=== PATIENT | female | born 1985 | race Caucasian/White ===

== ENCOUNTER → 2017-10-18 | Outpatient (REF) | payer OTHER | LOC: M LAB REF 18:43 | DX: L72.3 Sebaceous cyst (principal) ==

== ENCOUNTER → 2017-11-01 | Outpatient (REF) | payer OTHER | LOC: M LAB REF 18:26 | DX: L72.11 Pilar cyst (principal) ==

== ENCOUNTER → 2017-12-12 | Outpatient (CLI) | payer OTHER | LOC: M SLEEP HO 07:27 | DX: G47.00 Insomnia, unspecified (principal); G47.33 Obstructive sleep apnea (adult) (pediatric) ==

== ENCOUNTER → 2018-04-23 | Outpatient (CLI) | payer OTHER ==
[2018-04-23 13:30] LABS: APPEARANCE, URINE CLEAR (CLEAR); BACTERIA, URINE AUTO 1+ (NEGATIVE); BILIRUBIN, URINE AUTO NEGATIVE (NEGATIVE); BLOOD, URINE BLOOD NEGATIVE (NEGATIVE); COLOR, URINE STRAW (YELLOW); GLUCOSE, URINE (UA) AUTO NEGATIVE (NEGATIVE); KETONE, URINE AUTO NEGATIVE (NEGATIVE); LEUKOCYTE ESTERASE, URINE AUTO TRACE (NEGATIVE); NITRITE, URINE AUTO NEGATIVE (NEGATIVE); PROTEIN, URINE AUTO NEGATIVE (NEGATIVE); RBC, URINE AUTO 0 /HPF (0-3); SPECIFIC GRAVITY URINE AUTO 1.003 (1.002-1.035); SQUAMOUS EPITHELIAL CELL UR AU 1 /HPF (0-6); UROBILINOGEN, URINE AUTO 0.2 mg/dL (0.0-2.0); WBC, URINE AUTO 1 /HPF (0-3)
[2018-04-23 13:59] LABS: HEMOGLOBIN A1c 5.6 %
[2018-04-23 14:06] LABS: ALBUMIN 4.3 GM/DL (3.2-5.2); ALT/SGPT 22 U/L (12-78); BILIRUBIN,TOTAL 0.8 MG/DL (0.2-1.0); BLOOD UREA NITROGEN 9 MG/DL (7-18); CALCIUM LEVEL 8.6 MG/DL (8.5-10.1); CARBON DIOXIDE LEVEL 26 MEQ/L (21-32); CHLORIDE LEVEL 105 MEQ/L (98-107); CHOLESTEROL LEVEL 166 MG/DL (<200); CHOLESTEROL RISK RATIO 3.018 (<5); CREATININE FOR GFR 0.69 MG/DL (0.55-1.30); FREE T4 0.98 NG/DL (0.76-1.46); GLOMERULAR FILTRATION RATE > 60.0 (>60); GLUCOSE, FASTING 83 MG/DL (70-100); HDL CHOLESTEROL 55 MG/DL (>40); LDL CHOLESTEROL 95 MG/DL (<100); NON-HDL-C 111 MG/DL; POTASSIUM SERUM 4.2 MEQ/L (3.5-5.1); SODIUM LEVEL 137 MEQ/L (136-145); THYROID STIMULATING HORMONE 0.902 uIU/ML (0.358-3.740); TOTAL PROTEIN 7.6 GM/DL (6.4-8.2); TRIGLYCERIDES LEVEL 81 MG/DL (<150)
[2018-04-24 09:20] LABS: CREATININE, URINE 25.6 MG/DL; MALB URINE SIEMENS < 5.0 MG/L; MAU/CREAT RATIO 19.5 MCG/MG (0.0-30.0)
== END ==
LOC: M SMT 11:25
PROVIDERS: ATTEND Family Medicine
DX: Z83.3 Family history of diabetes mellitus (principal)

== ENCOUNTER → 2018-04-23 | Outpatient (CLI) | payer OTHER ==
[2018-04-23 13:35] LABS: BASO # 0.1 10^3/uL (0.0-0.2); BASO % 0.7 % (0.0-1.0); EOS # 0.1 10^3/uL (0.0-0.50); EOS % 1.3 % (0.0-3.0); HEMATOCRIT 42.2 % (36.0-47.0); HEMOGLOBIN 14.5 g/dl (12.0-15.5); LYMPH # 1.5 10^3/uL (1.5-4.5); LYMPH % 20.8 % (24.0-44.0); MEAN CORPUSCULAR HEMOGLOBIN 30.3 pg (27.0-33.0); MEAN CORPUSCULAR HGB CONC 34.4 g/dl (32.0-36.5); MEAN CORPUSCULAR VOLUME 88.1 fl (80.0-96.0); MONO # 0.4 10^3/uL (0.0-0.8); MONO % 5.9 % (0.0-5.0); NEUTROPHILS # 5.1 10^3/uL (1.8-7.7); NEUTROPHILS % 71.2 % (36.0-66.0); PLATELET COUNT, AUTOMATED 294 10^3/uL (150-450); RED BLOOD COUNT 4.79 10^6/uL (4.00-5.40); WHITE BLOOD COUNT 7.2 10^3/uL (4.0-10.0)
[2018-04-23 17:17] LABS: FREE T4 0.99 NG/DL (0.76-1.46); PROLACTIN 17.3 NG/ML; THYROID STIMULATING HORMONE 0.896 uIU/ML (0.358-3.740)
== END ==
LOC: M SMT 11:23
PROVIDERS: ATTEND Nurse Practitioner Women's Health
DX: N92.0 Excessive and frequent menstruation with regular cycle (principal); L68.0 Hirsutism

== ENCOUNTER → 2018-05-20 | Outpatient (CLI) | payer OTHER ==
--- NOTE | 2018-05-23 11:58 | SLEEPHOME ---
DATE OF PROCEDURE: 05/20/2018 ORDERED BY: Dr. Bowen. Diagnostic home sleep testing was performed due to concern for the obstructive sleep apnea syndrome. For testing, a nocturnal T3 respiratory monitoring device was used. Continuous record was made of pulse, oxygen saturation, airflow, chest, abdominal strain and body position. 10 hours and 59 minutes of data were reviewed. Of these, 9 hours and 17 minutes were marked as time in bed. During the interval marked time in bed, there were 16 respiratory events identified of 10 seconds in duration or greater for a respiratory event index of only 1.7. The events that were seen were identified exclusively in the supine posture. Baseline pulse rate was 63 beats per minute, pulse rate ranged 50-94. Baseline saturation 96% with some artifactual changes but no significant oxygen desaturations were identified. IMPRESSION: Normal diagnostic home sleep testing with mild respiratory disruption in the supine position. RECOMMENDATIONS: Sleep position for avoidance of supine posture should be sufficient to address the respiratory events that were seen during this test.
== END ==
LOC: M SLEEP HO 10:44
PROVIDERS: ATTEND Family Medicine
DX: G47.33 Obstructive sleep apnea (adult) (pediatric) (principal)

== ENCOUNTER → 2019-06-01 | Outpatient (CLI) | payer OTHER ==
[2019-06-01 14:57] LABS: ALBUMIN 3.7 GM/DL (3.2-5.2); ALT/SGPT 27 U/L (12-78); BILIRUBIN,TOTAL 0.6 MG/DL (0.2-1.0); BLOOD UREA NITROGEN 14 MG/DL (7-18); CALCIUM LEVEL 8.7 MG/DL (8.5-10.1); CARBON DIOXIDE LEVEL 26 MEQ/L (21-32); CHLORIDE LEVEL 107 MEQ/L (98-107); FREE T4 0.81 NG/DL (0.76-1.46); GLOMERULAR FILTRATION RATE > 60.0 (>60); GLUCOSE, FASTING 87 MG/DL (70-100); POTASSIUM SERUM 4.3 MEQ/L (3.5-5.1); SODIUM LEVEL 138 MEQ/L (136-145)
[2019-06-04 00:07] LABS: DEHYDROEPIANDROSTERONE SULFATE 502.3 ug/dL (84.8-378.0); TESTOSTERONE FREE (DIRECT) 5.9 pg/mL (0.0-4.2)
== END ==
LOC: M WUC 10:30
PROVIDERS: ATTEND Nurse Practitioner Women's Health
DX: Z00.00 Encounter for general adult medical examination without abnormal findings (principal); L68.0 Hirsutism

== ENCOUNTER → 2019-11-18 | Outpatient (REF) | payer OTHER ==
[2019-12-29 12:59] LABS: DEHYDROEPIANDROSTERONE SULFATE See Separate Report MCG/DL; INSULIN LEVEL See Separate Report; TESTOSTERONE FREE (DIRECT) See Separate Report PG/ML; TESTOSTERONE TOTAL FOR T&D See Separate Report NG/DL
[2020-01-13 15:23] LABS: ALBUMIN 4.1 GM/DL (3.2-5.2); ALT/SGPT 28 U/L (12-78); BILIRUBIN,TOTAL 0.3 MG/DL (0.2-1.0); BLOOD UREA NITROGEN 11 MG/DL (7-18); CALCIUM LEVEL 8.9 MG/DL (8.5-10.1); CARBON DIOXIDE LEVEL 29 MEQ/L (21-32); CHLORIDE LEVEL 107 MEQ/L (98-107); CREATININE FOR GFR 0.74 MG/DL (0.55-1.30); FOLLICLE STIMULATING HORMONE 8.5 mIU/mL; GLOMERULAR FILTRATION RATE > 60.0 (>60); GLUCOSE, FASTING 80 MG/DL (70-100); HEMOGLOBIN A1c 5.2 %; LUTEINIZING HORMONE 5.9 mIU/mL; POTASSIUM SERUM 4.4 MEQ/L (3.5-5.1); PROLACTIN 14.9 NG/ML; SODIUM LEVEL 140 MEQ/L (136-145); TOTAL PROTEIN 7.9 GM/DL (6.4-8.2)
[2020-01-28 03:19] LABS: H PYLORI QUALITATIVE IgG NEGATIVE (NEGATIVE)
== END ==
LOC: M SFHCPLAZ 13:00
PROVIDERS: ATTEND Family Medicine
DX: I10 Essential (primary) hypertension (principal)
CPT/HCPCS: 36415; 80053; 82627; 83001; 83002; 83036; 83525; 84146; 84402; 84403; 86677; U0003

== ENCOUNTER → 2019-11-25 | Outpatient (CLI) | payer OTHER ==
[~2019-11-25] MED LIST: GASTROGRAFIN SOLUTION 30ML (Q9963) As Ordered ONE; ISOVUE-370 76% 100ML VIAL As Ordered ONE
--- NOTE | 2020-01-12 17:55 | REP ---
CT STUDY OF THE ABDOMEN WITHOUT AND WITH IV CONTRAST AND WITH ORAL CONTRAST (REPEAT DICTATION) HISTORY: Elevated laboratory values. CT CONTRAST DOSE: 100 mL of intravenous [id number]. CT FINDINGS: Digital preliminary terra cotta setter radiograph is unremarkable. Normal bowel gas pattern. The lung bases are clear on axial CT images. Pre and post contrast CT imaging shows that the liver and spleen are normal in size, homogeneous in texture. Normal adrenal glands are seen. No abnormality is noted in the pancreas. The gallbladder is unremarkable. The kidneys enhance symmetrically and are morphologically intact. No retroperitoneal mass or adenopathy is seen. Small and large bowel loops are normal in the mid abdomen. No bony abnormality is seen. IMPRESSION: No significant abnormality noted. MTDD
--- NOTE | 2020-01-12 17:56 | REP ---
PELVIC SONOGRAPHY (REPEAT DICTATION) FINDINGS: Transabdominal scanning demonstrates a normal size uterus. Its dimensions are 7.5 x 3.3 x 5.0 cm. Endometrial echo is 0.4 cm in thickness. No focal uterine mass is seen. No free fluid is noted. Normal ovaries are seen on transabdominal imaging. Patient declined transvaginal imaging. The right ovary measures 2.8 x 1.5 x 2.3 cm. Left ovarian dimensions are 2.3 x 1.6 x 1.5 cm. Visualized bladder valentine are smooth. IMPRESSION: Normal pelvic sonography. MTDD
== END ==
LOC: M RAD 09:59
PROVIDERS: ATTEND Family Medicine
DX: E34.9 Endocrine disorder, unspecified (principal)

== ENCOUNTER → 2020-03-09 | Outpatient (CLI) | payer SELFPAY | LOC: M LABSMTC 18:45 | PROVIDERS: ATTEND Pediatrics | DX: Z11.59 Encounter for screening for other viral diseases (principal) ==

== ENCOUNTER → 2020-03-14 | Outpatient (CLI) | payer OTHER ==
[2020-03-14 09:58] LABS: HEMOGLOBIN A1c 5.3 %
[2020-03-14 10:13] LABS: ALBUMIN 4.2 GM/DL (3.2-5.2); ALT/SGPT 39 U/L (12-78); BILIRUBIN,TOTAL 0.6 MG/DL (0.2-1.0); BLOOD UREA NITROGEN 13 MG/DL (7-18); C REACTIVE PROTEIN QUANTITATIV 0.35 MG/DL (0.00-0.30); CALCIUM LEVEL 8.9 MG/DL (8.5-10.1); CARBON DIOXIDE LEVEL 28 MEQ/L (21-32); CHLORIDE LEVEL 105 MEQ/L (98-107); CHOLESTEROL LEVEL 184 MG/DL (<200); CHOLESTEROL RISK RATIO 2.967 (<5); CREATININE FOR GFR 0.72 MG/DL (0.55-1.30); GLOMERULAR FILTRATION RATE > 60.0 (>60); GLUCOSE, FASTING 97 MG/DL (70-100); HDL CHOLESTEROL 62 MG/DL (>40); IMMUNOGLOBULIN E 48.6 IU/ML (<100); LDL CHOLESTEROL 110 MG/DL (<100); NON-HDL-C 122 MG/DL; SODIUM LEVEL 138 MEQ/L (136-145); TOTAL PROTEIN 8.1 GM/DL (6.4-8.2); TRIGLYCERIDES LEVEL 61 MG/DL (<150)
[2020-03-14 10:23] LABS: CREATININE, URINE 63.4 MG/DL; MALB URINE SIEMENS 5.1 MG/L
== END ==
LOC: M LAB 08:45
PROVIDERS: ATTEND Family Medicine
DX: J30.89 Other allergic rhinitis (principal); E28.2 Polycystic ovarian syndrome; Z83.3 Family history of diabetes mellitus

== ENCOUNTER → 2020-06-17 | Outpatient (CLI) | payer OTHER ==
--- NOTE | 2020-06-17 12:45 | REP ---
INDICATION: OVARIAN CYSTS/ PT HAS LABS FIRST. COMPARISON: Comparison sonography November 25, 2019.. TECHNIQUE: Transabdominal scanning is performed. Patient declined transvaginal imaging. FINDINGS: Uterine dimensions are normal at 7.5 x 3.4 x 4.7 cm. Endometrial echo is 0.6 cm thick and centrally placed. No free fluid is seen in the cul-de-sac. Visualized bladder valentine are smooth. The right ovary has dimensions of 2.8 x 1.4 x 2.1 cm. It's Doppler flow is normal with a resistive index of 0.6. X The left ovary dimensions are normal as well at 2.4 x 1.6 x 2.2 cm. It's Doppler flow was normal with resistive index of 0.57. IMPRESSION: Normal pelvic sonography. <Electronically signed by Lopez Love > 06/17/20 [id number]
== END ==
LOC: M RAD 10:16
PROVIDERS: ATTEND Obstetrics & Gynecology
DX: E28.1 Androgen excess (principal)

== ENCOUNTER → 2020-07-18 | Outpatient (CLI) | payer OTHER ==
[2020-07-18 11:27] LABS: ALBUMIN 3.9 GM/DL (3.2-5.2); BLOOD UREA NITROGEN 16 MG/DL (7-18); CALCIUM LEVEL 8.9 MG/DL (8.5-10.1); CARBON DIOXIDE LEVEL 29 MEQ/L (21-32); CHLORIDE LEVEL 105 MEQ/L (98-107); CREATININE FOR GFR 0.69 MG/DL (0.55-1.30); GLOMERULAR FILTRATION RATE > 60.0 (>60); GLUCOSE, FASTING 91 MG/DL (70-100); PHOSPHORUS LEVEL 3.9 MG/DL (2.5-4.9); POTASSIUM SERUM 4.1 MEQ/L (3.5-5.1); SODIUM LEVEL 139 MEQ/L (136-145)
[2020-07-19 15:37] LABS: FOLLICLE STIMULATING HORMONE 8.2 mIU/mL
[2020-07-19 15:38] LABS: LUTEINIZING HORMONE 3.9 mIU/mL
== END ==
LOC: M LAB 09:44
PROVIDERS: ATTEND Family Medicine
DX: E28.2 Polycystic ovarian syndrome (principal)

== ENCOUNTER → 2021-01-10 | Outpatient (REF) | payer OTHER | LOC: M SFHCPLAZ 13:11 | PROVIDERS: ATTEND Family Medicine | DX: L98.8 Other specified disorders of the skin and subcutaneous tissue (principal) ==

== ENCOUNTER → 2021-05-20 | Outpatient (CLI) | payer OTHER ==
[2021-05-20 16:51] LABS: ALT/SGPT 36 U/L (12-78); BILIRUBIN,TOTAL 0.2 MG/DL (0.2-1.0); BLOOD UREA NITROGEN 14 MG/DL (7-18); C REACTIVE PROTEIN QUANTITATIV 0.39 MG/DL (0.00-0.30); CALCIUM LEVEL 9.2 MG/DL (8.5-10.1); CARBON DIOXIDE LEVEL 28 MEQ/L (21-32); CHLORIDE LEVEL 105 MEQ/L (98-107); CHOLESTEROL LEVEL 160 MG/DL (<200); CREATININE FOR GFR 0.69 MG/DL (0.55-1.30); GLOMERULAR FILTRATION RATE > 60.0 (>60); GLUCOSE, FASTING 85 MG/DL (70-100); HDL CHOLESTEROL 50 MG/DL (>40); LDL CHOLESTEROL 74 MG/DL (<100); MAGNESIUM LEVEL 2.1 MG/DL (1.8-2.4); NON-HDL-C 110 MG/DL; POTASSIUM SERUM 4.3 MEQ/L (3.5-5.1); SODIUM LEVEL 139 MEQ/L (136-145); TOTAL PROTEIN 7.4 GM/DL (6.4-8.2); TRIGLYCERIDES LEVEL 180 MG/DL (<150)
[2021-05-20 17:24] LABS: HEMOGLOBIN A1c 5.4 %
[2021-05-23 20:12] LABS: INSULIN LEVEL 16.8 uIU/mL (2.6-24.9); TESTOSTERONE FREE (DIRECT) 1.7 pg/mL (0.0-4.2)
== END ==
LOC: M LAB 15:53
PROVIDERS: ATTEND Family Medicine
DX: E28.2 Polycystic ovarian syndrome (principal); E78.2 Mixed hyperlipidemia

== ENCOUNTER → 2021-11-01 | Outpatient (CLI) | payer OTHER ==
[2021-11-01 11:15] LABS: BASO % 0.7 % (0.0-1.0); EOS # 0.1 10^3/uL (0.0-0.5); EOS % 1.6 % (0.0-3.0); HEMATOCRIT 42.2 % (36.0-47.0); HEMOGLOBIN 14.2 g/dl (12.0-15.5); LYMPH % 35.4 % (24.0-44.0); MEAN CORPUSCULAR HEMOGLOBIN 29.5 pg (27.0-33.0); MEAN CORPUSCULAR HGB CONC 33.6 g/dl (32.0-36.5); MEAN CORPUSCULAR VOLUME 87.6 fl (80.0-96.0); MONO # 0.4 10^3/uL (0.0-0.8); MONO % 7.2 % (2.0-8.0); NEUTROPHILS # 3.2 10^3/uL (1.5-8.5); NEUTROPHILS % 54.9 % (36.0-66.0); PLATELET COUNT, AUTOMATED 273 10^3/uL (150-450); RED BLOOD COUNT 4.82 10^6/uL (4.00-5.40); WHITE BLOOD COUNT 5.7 10^3/uL (4.0-10.0)
[2021-11-01 13:01] LABS: ALBUMIN 4.1 GM/DL (3.2-5.2); ALT/SGPT 22 U/L (12-78); BILIRUBIN,TOTAL 0.6 MG/DL (0.2-1.0); BLOOD UREA NITROGEN 14 MG/DL (7-18); CALCIUM LEVEL 9.2 MG/DL (8.5-10.1); CARBON DIOXIDE LEVEL 26 MEQ/L (21-32); CHLORIDE LEVEL 107 MEQ/L (98-107); CREATININE FOR GFR 0.77 MG/DL (0.55-1.30); FREE T4 0.93 NG/DL (0.76-1.46); GLOMERULAR FILTRATION RATE > 60.0 (>60); GLUCOSE, FASTING 92 MG/DL (70-100); POTASSIUM SERUM 4.2 MEQ/L (3.5-5.1); SODIUM LEVEL 139 MEQ/L (136-145); THYROID STIMULATING HORMONE 0.893 uIU/ML (0.358-3.740); TOTAL PROTEIN 7.4 GM/DL (6.4-8.2)
[2021-11-02 16:10] LABS: TESTOSTERONE FREE (DIRECT) 2.9 pg/mL (0.0-4.2)
== END ==
LOC: M LAB 10:52
PROVIDERS: ATTEND Family Medicine
DX: E28.2 Polycystic ovarian syndrome (principal)

== ENCOUNTER → 2021-11-17 | Outpatient (CLI) | payer OTHER | LOC: M PLAIMG 10:14 | PROVIDERS: ATTEND Family Medicine | DX: K58.1 Irritable bowel syndrome with constipation (principal) ==

== ENCOUNTER → 2022-04-08 | Outpatient (CLI) | payer OTHER ==
[2022-04-08 15:44] LABS: ALBUMIN 4.1 G/DL (3.2-5.2); BLOOD UREA NITROGEN 11 MG/DL (9-23); CALCIUM LEVEL 9.1 MG/DL (8.5-10.1); CARBON DIOXIDE LEVEL 29 MMOL/L (20-31); CHLORIDE LEVEL 103 MMOL/L (98-107); CREATININE FOR GFR 0.66 MG/DL (0.55-1.30); GLOMERULAR FILTRATION RATE > 60.0 (>60); GLUCOSE, FASTING 92 MG/DL (60-100); PHOSPHORUS LEVEL 4.3 MG/DL (2.5-4.9); POTASSIUM SERUM 4.1 MMOL/L (3.5-5.1); SODIUM LEVEL 139 MMOL/L (136-145)
[2022-04-08 15:45] LABS: C REACTIVE PROTEIN QUANTITATIV < 0.40 MG/DL (<1.0)
[2022-04-08 15:46] LABS: PTH INTACT 34.5 PG/ML (18.5-88.0)
[2022-04-08 15:47] LABS: FERRITIN 25.7 NG/ML (7.3-270.7); TOTAL 25(OH) VITAMIN D 39.8 NG/ML (20.0-100.0); VITAMIN B12 LEVEL 579 PG/ML (211-911)
== END ==
LOC: M LAB 14:50
PROVIDERS: ATTEND Family Medicine
DX: E28.2 Polycystic ovarian syndrome (principal); N92.0 Excessive and frequent menstruation with regular cycle; E78.2 Mixed hyperlipidemia

== ENCOUNTER → 2022-09-18 | Outpatient (CLI) | payer OTHER ==
[2022-09-18 17:16] LABS: BASO # 0.1 10^3/uL (0.0-0.2); BASO % 0.9 % (0.0-1.0); EOS # 0.1 10^3/uL (0.0-0.5); EOS % 0.8 % (0.0-3.0); HEMOGLOBIN 13.6 g/dl (12.0-15.5); LYMPH # 2.5 10^3/uL (1.5-5.0); LYMPH % 32.4 % (24.0-44.0); MEAN CORPUSCULAR VOLUME 88.3 fl (80.0-96.0); MONO # 0.5 10^3/uL (0.0-0.8); MONO % 6.1 % (2.0-8.0); NEUTROPHILS # 4.6 10^3/uL (1.5-8.5); NEUTROPHILS % 59.5 % (36.0-66.0); PLATELET COUNT, AUTOMATED 296 10^3/uL (150-450); RED BLOOD COUNT 4.53 10^6/uL (4.00-5.40); WHITE BLOOD COUNT 7.7 10^3/uL (4.0-10.0)
== END ==
LOC: M WUC 14:14
PROVIDERS: ATTEND Family Medicine
DX: E28.2 Polycystic ovarian syndrome (principal); D50.9 Iron deficiency anemia, unspecified

== ENCOUNTER → 2023-01-13 | Outpatient (CLI) | payer OTHER ==
[2023-01-13 11:48] LABS: HEMATOCRIT 44.8 % (36.0-47.0)
[2023-01-13 11:49] LABS: BASO # 0.1 10^3/uL (0.0-0.2); BASO % 0.6 % (0.0-1.0); EOS # 0.1 10^3/uL (0.0-0.5); EOS % 1.5 % (0.0-3.0); HEMATOCRIT 44.1 % (36.0-47.0); HEMOGLOBIN 15.1 g/dl (12.0-15.5); LYMPH # 2.4 10^3/uL (1.5-5.0); LYMPH % 29.4 % (24.0-44.0); MEAN CORPUSCULAR HEMOGLOBIN 30.1 pg (27.0-33.0); MEAN CORPUSCULAR HGB CONC 34.2 g/dl (32.0-36.5); MEAN CORPUSCULAR VOLUME 87.8 fl (80.0-96.0); MONO # 0.5 10^3/uL (0.0-0.8); MONO % 5.6 % (2.0-8.0); NEUTROPHILS % 62.6 % (36.0-66.0); PLATELET COUNT, AUTOMATED 306 10^3/uL (150-450); RED BLOOD COUNT 5.02 10^6/uL (4.00-5.40)
[2023-01-13 12:24] LABS: ALBUMIN 4.2 G/DL (3.2-5.2); ALKALINE PHOSPHATASE 56 U/L (46-116); ALT/SGPT 38 U/L (7.0-40); AST/SGOT 21 U/L (<34); BILIRUBIN,TOTAL 0.8 MG/DL (0.3-1.2); BLOOD UREA NITROGEN 13 MG/DL (9-23); CALCIUM LEVEL 9.1 MG/DL (8.5-10.1); CARBON DIOXIDE LEVEL 31 MMOL/L (20-31); CHLORIDE LEVEL 104 MMOL/L (98-107); CREATININE FOR GFR 0.74 MG/DL (0.55-1.30); GLOMERULAR FILTRATION RATE > 60.0 (>60); GLUCOSE, FASTING 91 MG/DL (60-100); POTASSIUM SERUM 4.4 MMOL/L (3.5-5.1); SODIUM LEVEL 141 MMOL/L (136-145); TOTAL PROTEIN 7.7 G/DL (5.7-8.2)
[2023-01-13 12:25] LABS: PTH INTACT 32.2 PG/ML (18.5-88.0)
[2023-01-13 12:26] LABS: FERRITIN 52.9 NG/ML (7.3-270.7); TOTAL 25(OH) VITAMIN D 35.6 NG/ML (20.0-100.0); VITAMIN B12 LEVEL 962 PG/ML (211-911)
== END ==
LOC: M LAB 10:50
PROVIDERS: ATTEND Family Medicine
DX: E55.9 Vitamin D deficiency, unspecified (principal); R76.8 Other specified abnormal immunological findings in serum; D50.9 Iron deficiency anemia, unspecified

== ENCOUNTER 2023-05-02 11:42 | Day surgery (SDC) | payer OTHER ==
[~2023-05-02] VITALS: Ht 165.1 cm; Wt 72.3 kg
[~2023-05-02 11:42] MED LIST changes: -GASTROGRAFIN SOLUTION 30ML (Q9963) As Ordered ONE; -ISOVUE-370 76% 100ML VIAL As Ordered ONE; +LUBI8CAP PO; +NS 1,000 ML IV ONE; +PANT20TA6 PO; +SPIR50TA4 PO
[2023-05-02] MEDS ORDERED: propofoL 200 MG/20 ML VIAL As Ordered ONE (13:11)
[2023-05-02] MEDS ORDERED: LIDOCAINE 2% 100MG/5ML SDV (FOR ANES.) As Ordered ONE (13:11)
[2023-05-02] MEDS ORDERED: fentaNYL 100 MCG/2 ML INJECTION As Ordered ONE (13:11)
[2023-05-02] MEDS ORDERED: ePHEDrine SULFATE 25 MG/5 ML(5MG/ML) SYRINGE As Ordered ONE (13:20)
[2023-05-02 13:33] VITALS: TEMP 99.3
[2023-05-02 13:52] VITALS: BP 121/74; O2SAT 95
== END 2023-05-02 13:55 | disposition home or self-care (01) ==
LOC: M OPP 11:42
PROVIDERS: ATTEND Internal Medicine Gastroenterology
DX: K22.89 Other specified disease of esophagus (principal); K22.70 Barrett's esophagus without dysplasia; K44.9 Diaphragmatic hernia without obstruction or gangrene; R76.8 Other specified abnormal immunological findings in serum; Z79.899 Other long term (current) drug therapy
CPT/HCPCS: 43239; 88305; J3010

== ENCOUNTER → 2023-06-23 | Outpatient (CLI) | payer OTHER ==
[~2023-06-23] MED LIST changes: -NS 1,000 ML IV ONE
[2023-06-23 10:38] LABS: BASO # 0.1 10^3/uL (0.0-0.2); BASO % 0.6 % (0.0-1.0); EOS # 0.1 10^3/uL (0.0-0.5); EOS % 1.3 % (0.0-3.0); HEMATOCRIT 41.9 % (36.0-47.0); HEMOGLOBIN 14.2 g/dl (12.0-15.5); LYMPH # 2.3 10^3/uL (1.5-5.0); LYMPH % 25.7 % (24.0-44.0); MEAN CORPUSCULAR HGB CONC 33.9 g/dl (32.0-36.5); MEAN CORPUSCULAR VOLUME 88.6 fl (80.0-96.0); MONO # 0.5 10^3/uL (0.0-0.8); MONO % 5.4 % (2.0-8.0); NEUTROPHILS # 5.9 10^3/uL (1.5-8.5); NEUTROPHILS % 66.7 % (36.0-66.0); PLATELET COUNT, AUTOMATED 298 10^3/uL (150-450); RED BLOOD COUNT 4.73 10^6/uL (4.00-5.40); WHITE BLOOD COUNT 8.9 10^3/uL (4.0-10.0)
[2023-06-23 10:53] LABS: HEMOGLOBIN A1c 5.4 % (4.0-6.0)
[2023-06-23 11:14] LABS: CHOLESTEROL RISK RATIO 3.61 (<5); HDL CHOLESTEROL 46.2 MG/DL (>40); LDL CHOLESTEROL 105.4 MG/DL (<100); NON-HDL-C 120.8 MG/DL
[2023-06-23 11:17] LABS: FERRITIN 39.2 NG/ML (7.3-270.7); FREE T4 1.09 NG/DL (0.89-1.76); THYROID STIMULATING HORMONE 1.199 uIU/ML (0.55-4.78)
== END ==
LOC: M LAB 09:55
PROVIDERS: ATTEND Family Medicine
DX: R76.8 Other specified abnormal immunological findings in serum (principal); D50.9 Iron deficiency anemia, unspecified; Z83.3 Family history of diabetes mellitus; E78.2 Mixed hyperlipidemia

== ENCOUNTER → 2023-07-25 | Outpatient (CLI) | payer OTHER | LOC: M WHC 13:57 | PROVIDERS: ATTEND Family Medicine | DX: N94.6 Dysmenorrhea, unspecified (principal); R14.0 Abdominal distension (gaseous) ==

== ENCOUNTER → 2023-11-02 | Outpatient (CLI) | payer OTHER ==
[2023-11-02 13:33] LABS: ALKALINE PHOSPHATASE 44 U/L (46-116); ALT/SGPT 24 U/L (7.0-40); AST/SGOT 13 U/L (<34); BILIRUBIN,TOTAL 0.8 MG/DL (0.3-1.2); BLOOD UREA NITROGEN 12 MG/DL (9-23); CALCIUM LEVEL 8.8 MG/DL (8.5-10.1); CARBON DIOXIDE LEVEL 27 MMOL/L (20-31); CHLORIDE LEVEL 106 MMOL/L (98-107); GLOMERULAR FILTRATION RATE > 60.0 (>60); GLUCOSE, FASTING 100 MG/DL (60-100); POTASSIUM SERUM 4.1 MMOL/L (3.5-5.1); PTH INTACT 42.2 PG/ML (18.5-88.0); SODIUM LEVEL 140 MMOL/L (136-145); TOTAL PROTEIN 7.1 G/DL (5.7-8.2)
[2023-11-02 13:34] LABS: TOTAL 25(OH) VITAMIN D 38.2 NG/ML (20.0-100.0); VITAMIN B12 LEVEL 619 PG/ML (211-911)
[2023-11-03 07:33] LABS: DEHYDROEPIANDROSTERONE SULFATE 421 mcg/dL (19-237)
[2023-11-05 14:41] LABS: SSA SJOGRENS A <1.0 NEG AI (<1.0 NEG); SSB SJOGRENS B <1.0 NEG AI (<1.0 NEG)
[2023-11-05 17:17] LABS: ANA SCREEN, IFA NEGATIVE (NEGATIVE)
== END ==
LOC: M WUC 09:40
PROVIDERS: ATTEND Family Medicine
DX: K11.7 Disturbances of salivary secretion (principal); E28.2 Polycystic ovarian syndrome; R76.8 Other specified abnormal immunological findings in serum; E55.9 Vitamin D deficiency, unspecified

== ENCOUNTER → 2023-11-13 | Outpatient (REF) | payer OTHER | LOC: M LAB REF 17:39 | PROVIDERS: ATTEND Surgery | DX: L72.11 Pilar cyst (principal) ==

== ENCOUNTER → 2023-12-21 | Outpatient (CLI) | payer OTHER ==
[~2023-12-21] MED LIST changes: +ISOVUE-370 76% 100ML VIAL As Ordered ONE
== END ==
LOC: M RAD 15:43
PROVIDERS: ATTEND Family Medicine
DX: K11.8 Other diseases of salivary glands (principal)
CPT/HCPCS: 70491; Q9967

== ENCOUNTER → 2024-03-24 | Outpatient (CLI) | payer OTHER ==
[~2024-03-24] MED LIST changes: -ISOVUE-370 76% 100ML VIAL As Ordered ONE
[2024-03-24 09:42] LABS: BASO # 0.1 10^3/uL (0.0-0.2); BASO % 0.9 % (0.0-1.0); EOS # 0.2 10^3/uL (0.0-0.5); EOS % 2.9 % (0.0-3.0); HEMATOCRIT 41.1 % (36.0-47.0); HEMOGLOBIN 13.6 g/dl (12.0-15.5); LYMPH # 1.9 10^3/uL (1.5-5.0); LYMPH % 29.3 % (24.0-44.0); MEAN CORPUSCULAR HEMOGLOBIN 29.8 pg (27.0-33.0); MEAN CORPUSCULAR HGB CONC 33.1 g/dl (32.0-36.5); MEAN CORPUSCULAR VOLUME 89.9 fl (80.0-96.0); MONO # 0.4 10^3/uL (0.0-0.8); MONO % 6.8 % (2.0-8.0); NEUTROPHILS # 3.9 10^3/uL (1.5-8.5); NEUTROPHILS % 59.9 % (36.0-66.0); PLATELET COUNT, AUTOMATED 286 10^3/uL (150-450); RED BLOOD COUNT 4.57 10^6/uL (4.00-5.40); WHITE BLOOD COUNT 6.5 10^3/uL (4.0-10.0)
[2024-03-24 10:09] LABS: C REACTIVE PROTEIN QUANTITATIV < 0.50 MG/DL (<1.0)
[2024-03-24 10:10] LABS: CHOLESTEROL LEVEL 157 MG/DL (<200); CHOLESTEROL RISK RATIO 3.14 (<5); FREE T4 1.09 NG/DL (0.89-1.76); HDL CHOLESTEROL 49.9 MG/DL (>40); LDL CHOLESTEROL 89.5 MG/DL (<100); NON-HDL-C 107.1 MG/DL; PTH INTACT 38.5 PG/ML (18.5-88.0); THYROID STIMULATING HORMONE 0.847 uIU/ML (0.55-4.78); TRIGLYCERIDES LEVEL 88 MG/DL (<150)
[2024-03-24 10:11] LABS: FERRITIN 30.3 NG/ML (7.3-270.7); TOTAL 25(OH) VITAMIN D 30.4 NG/ML (20.0-100.0)
[2024-03-27 17:07] LABS: TISSUE TRANSGLUTAMINASE IgA 16.1 U/mL (<15.0)
[2024-03-28 10:32] LABS: SOLUBLE TRANSFERRIN RECEPTOR 0.75 mg/L (0.76-1.76)
== END ==
LOC: M LAB 08:53
PROVIDERS: ATTEND Family Medicine
DX: E28.2 Polycystic ovarian syndrome (principal); E55.9 Vitamin D deficiency, unspecified; E78.2 Mixed hyperlipidemia; D50.9 Iron deficiency anemia, unspecified; R76.8 Other specified abnormal immunological findings in serum

== ENCOUNTER 2024-05-19 08:40 | Day surgery (SDC) | payer OTHER ==
[~2024-05-19] VITALS: Ht 165.1 cm; Wt 72.6 kg
[~2024-05-19 08:40] MED LIST changes: +CEVI1CAP PO; +D200CAP2 PO; +LIDOCAINE 2% 100MG/5ML SDV (FOR ANES.) As Ordered ONE; +OMEG10002 PO; +THERTAB52 PO; +fentaNYL 100 MCG/2 ML INJECTION As Ordered ONE; +propofoL 200 MG/20 ML VIAL As Ordered ONE
[2024-05-19] MEDS ORDERED: ONDANSETRON 4MG 2ML VIAL As Ordered ONE (09:20)
[2024-05-19] MEDS ORDERED: ePHEDrine SULFATE 25 MG/5 ML(5MG/ML) SYRINGE As Ordered ONE (09:38)
[2024-05-19 09:39] VITALS: TEMP 97.6
[2024-05-19 09:58] VITALS: BP 112/59; O2SAT 99
== END 2024-05-19 10:05 | disposition home or self-care (01) ==
LOC: M OPP 08:40
PROVIDERS: ATTEND Internal Medicine Gastroenterology
DX: K22.70 Barrett's esophagus without dysplasia (principal); K22.89 Other specified disease of esophagus; R12 Heartburn; Z91.048 Other nonmedicinal substance allergy status; Z79.899 Other long term (current) drug therapy
CPT/HCPCS: 43239; 88305; J2405; J3010

== ENCOUNTER → 2024-07-18 | Outpatient (CLI) | payer OTHER ==
[~2024-07-18] MED LIST changes: -LIDOCAINE 2% 100MG/5ML SDV (FOR ANES.) As Ordered ONE; -fentaNYL 100 MCG/2 ML INJECTION As Ordered ONE; -propofoL 200 MG/20 ML VIAL As Ordered ONE
[2024-07-18 10:46] LABS: BASO # 0.1 10^3/uL (0.0-0.2); BASO % 0.9 % (0.0-1.0); EOS # 0.1 10^3/uL (0.0-0.5); EOS % 1.6 % (0.0-3.0); HEMATOCRIT 42.8 % (36.0-47.0); HEMOGLOBIN 14.5 g/dl (12.0-15.5); LYMPH # 1.9 10^3/uL (1.5-5.0); LYMPH % 28.6 % (24.0-44.0); MEAN CORPUSCULAR HEMOGLOBIN 30.2 pg (27.0-33.0); MEAN CORPUSCULAR HGB CONC 33.9 g/dl (32.0-36.5); MEAN CORPUSCULAR VOLUME 89.2 fl (80.0-96.0); MONO # 0.4 10^3/uL (0.0-0.8); NEUTROPHILS # 4.2 10^3/uL (1.5-8.5); NEUTROPHILS % 62.6 % (36.0-66.0); PLATELET COUNT, AUTOMATED 282 10^3/uL (150-450); WHITE BLOOD COUNT 6.7 10^3/uL (4.0-10.0)
[2024-07-18 11:13] LABS: PTH INTACT 38.8 PG/ML (18.5-88.0)
[2024-07-18 11:14] LABS: THYROGLOBULIN ANTIBODY < 15.0 U/ML (<60.0); THYROID STIMULATING HORMONE 0.773 uIU/ML (0.55-4.78)
[2024-07-18 11:15] LABS: FERRITIN 33.6 NG/ML (7.3-270.7); FREE T4 1.09 NG/DL (0.89-1.76); THYROID PEROXIDASE ANTIBODY 38 U/ML (<60.0)
[2024-07-18 11:17] LABS: TOTAL 25(OH) VITAMIN D 32.6 NG/ML (20.0-100.0)
[2024-07-21 15:37] LABS: TISSUE TRANSGLUTAMINASE IgA 17.2 U/mL (<15.0)
== END ==
LOC: M LAB 09:05
PROVIDERS: ATTEND Family Medicine
DX: E28.2 Polycystic ovarian syndrome (principal); D50.9 Iron deficiency anemia, unspecified; R76.8 Other specified abnormal immunological findings in serum; E78.2 Mixed hyperlipidemia; E55.9 Vitamin D deficiency, unspecified; N94.6 Dysmenorrhea, unspecified

== ENCOUNTER → 2025-01-03 | Outpatient (CLI) | payer OTHER ==
[2025-01-03 10:35] LABS: BASO # 0.1 10^3/uL (0.0-0.2); BASO % 1.0 % (0.0-1.0); EOS # 0.1 10^3/uL (0.0-0.5); EOS % 2.1 % (0.0-3.0); LYMPH # 1.9 10^3/uL (1.5-5.0); LYMPH % 31.0 % (24.0-44.0); MONO # 0.4 10^3/uL (0.0-0.8); MONO % 6.3 % (2.0-8.0); NEUTROPHILS # 3.7 10^3/uL (1.5-8.5); NEUTROPHILS % 59.3 % (36.0-66.0); PLATELET COUNT, AUTOMATED 309 10^3/uL (150-450)
[2025-01-03 10:58] LABS: ESTIMATED AVERAGE GLUCOSE 111.0 MG/DL (60-110)
[2025-01-03 11:08] LABS: ALT/SGPT 23 U/L (7.0-40); AST/SGOT 15 U/L (<34); CALCIUM LEVEL 8.9 MG/DL (8.5-10.1); CARBON DIOXIDE LEVEL 28 MMOL/L (20-31); CHLORIDE LEVEL 104 MMOL/L (98-107); CREATININE FOR GFR 0.75 MG/DL (0.55-1.30); GLOMERULAR FILTRATION RATE > 90.0 (>60); POTASSIUM SERUM 4.3 MMOL/L (3.5-5.1); PTH INTACT 28.2 PG/ML (18.5-88.0); SODIUM LEVEL 140 MMOL/L (136-145)
[2025-01-03 11:10] LABS: TOTAL 25(OH) VITAMIN D 28.4 NG/ML (20.0-100.0)
[2025-01-06 02:37] LABS: DEHYDROEPIANDROSTERONE SULFATE 467 mcg/dL (19-237)
== END ==
LOC: M LAB 09:30
PROVIDERS: ATTEND Family Medicine
DX: E28.2 Polycystic ovarian syndrome (principal); D50.9 Iron deficiency anemia, unspecified; E55.9 Vitamin D deficiency, unspecified; N94.6 Dysmenorrhea, unspecified; R76.8 Other specified abnormal immunological findings in serum; Z83.3 Family history of diabetes mellitus